=== PATIENT | male | born 1990 | race Caucasian/White ===

== ENCOUNTER 2020-03-26 16:22 | Emergency (ER) | payer BC, OTHER ==
--- NOTE | 2020-03-26 17:07 | EDM.PDOC ---
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 Pain is acute, guarding of R shoulder movement, and any movement that attempts to fix the R arm to the chest wall. There is no prior injury hx. He has taken no meds. R chest wall Pain Score (Numeric/FACES): 7 - Related Data Allergies Allergy/AdvReac Type Severity Reaction Status Date / Time No Known Allergies Allergy Verified 03/26/20 17:23 Home Meds: Home Meds Ascorbic Acid [Vitamin C] 500 mg PO DAILY 03/26/20 [History] Cholecalciferol (Vitamin D3) [Vitamin D3] 1,000 unit PO DAILY 03/26/20 [History] Multivitamin [Multivitamins] 1 each PO DAILY 03/26/20 [History] Naproxen Sodium [Aleve] 220 mg PO DAILY 03/26/20 [History] Omeprazole 20 mg PO DAILY 03/26/20 [History] Past Medical History - Past Health History Medical/Surgical History: Denies Medical/Surgical History Social & Family History - Living Situation & Occupation Living situation: Reports: Occupation: Employed Review of Systems - Review of Systems Review Of Systems: Comprehensive ROS is negative, except as noted in HPI. ED EXAM, GENERAL - Physical Exam Exam: See Below Exam Limited By: No Limitations General Appearance: Alert, WD/WN, Anxious, Mild Distress, Obese Eye Exam: Bilateral Eye: EOMI, Normal Inspection, PERRL Ears: Normal External Exam Nose: Normal Inspection Throat/Mouth: Normal Inspection, Normal Oropharynx Head: Normocephalic Neck: Normal Inspection Respiratory/Chest: Lungs Clear, Other (chest tender overlying distal R pectoralis major near insertion with R humerus; no step off) Cardiovascular: No Murmur GI/Abdominal: Soft, Non-Tender, No Organomegaly, No Mass (Male) Exam: Deferred Rectal (Males) Exam: Deferred Back Exam: Normal Inspection Extremities: Normal Inspection, Limited Range of Motion (R arm at the shoulder to adduction, internal rotation, and forward flexion; ) Neurological: Alert, Oriented, CN II-XII Intact, Normal Cognition, Normal Gait, No Motor/Sensory Deficits Psychiatric: Normal Affect, Anxious Skin Exam: Warm, Dry, Intact, Normal Color, No Rash Lymphatic: No Adenopathy Course - Vital Signs Text/Narrative:: Juan was fitted with a sling to RUE for comfort, and will take NSAIDs for pain. Last Recorded V/S: Last Vital Signs Temp 36.8 C 03/26/20 17:16 Pulse 72 03/26/20 18:24 Resp 20 03/26/20 18:24 BP 152/103 H 03/26/20 18:24 Pulse Ox 100 03/26/20 18:24 Departure - Departure Time of Disposition: 17:20 Disposition: Home, Self-Care 01 Condition: Fair Clinical Impression: Strain of right pectoralis muscle Qualifiers: Encounter type: initial encounter Qualified Code(s): S29.011A - Strain of muscle and tendon of front wall of thorax, initial encounter - Discharge Information *PRESCRIPTION DRUG MONITORING PROGRAM REVIEWED*: Not Applicable *COPY OF PRESCRIPTION DRUG MONITORING REPORT IN PATIENT [facility]: Not Applicable Instructions: Pectoralis Major Tear, Pectoralis Major Tear Rehab-Sports[facility] Referrals: Cruz Wu MD [Primary Care Provider] - Forms: ED Department Discharge Additional Instructions: Activity as tolerated. Sling to R arm. Ice to R arm & chest for 20-30 minutes 4-6 times daily x next several days. Tylenol or Ibuprofen as needed for pain. Follow up with regular MD next week, may need referral for physical therapy. Call for appt. Sepsis Event Note (ED) - Focused Exam Vital Signs: Vital Signs Temp Pulse Resp BP Pulse Ox 03/26/20 18:24 72 20 152/103 H 100 03/26/20 17:16 36.8 C 83 18 146/92 H 100 - Problem List & Annotations (1) Strain of right pectoralis muscle SNOMED Code(s): 604977325 Code(s): S29.011A - STRAIN OF MUSCLE AND TENDON OF FRONT WALL OF THORAX, INIT Status: Acute Annotation/Comment:: Juan was placed in a sling for comfort, advised ice massage and NSAIDs for comfort, and follow up with PCP regarding rehab. Qualifiers: Encounter type: initial encounter Qualified Code(s): S29.011A - Strain of muscle and tendon of front wall of thorax, initial encounter - Problem List Review Problem List Initiated/Reviewed/Updated: Yes - Assessment/Plan Plan: Follow up with PCP.
== END 2020-03-26 18:25 | disposition home or self-care (01) ==
LOC: FB.ED 16:22
DX: S29.011A Strain of muscle and tendon of front wall of thorax, initial encounter (principal); Z79.899 Other long term (current) drug therapy; Y93.43 Activity, gymnastics; X58.XXXA Exposure to other specified factors, initial encounter
CPT/HCPCS: 99282; 99284